=== PATIENT | male | born 1935 | race Caucasian/White ===

== ENCOUNTER 2023-12-21 10:28 | Emergency (ER) | payer OTHER, SELFPAY ==
[2023-12-21 10:32] VITALS: BP 128/67
--- NOTE | 2023-12-21 10:52 | ED.GENMED ---
History of Present Illness
General
Chief Complaint: Throat Problem
Time Seen by Provider: 12/21/23 10:51
Travel History
Have you had any contact with someone who has COVID-19?: No
Do you have any symptoms of coronavirus? Fever > 100 degrees, chills, cough, shortness of breath, sore throat, loss of taste or smell, muscle aches, or headache?: No
History of Present Illness
History of Present Illness:
HPI: The patient presents with bloody sputum ongoing and worsening over the past several weeks. He is known to Dr. Morillo patient called this orthotics assistant who referred him to come here. He is on Xarelto. He reports no shortness of breath.
He has chronic increased phlegm production over the past several decades. He has never smoked.
EXAM:
GENERAL: Well appearing in no distress
HEENT: Moist oral mucosa
CARDIOVASCULAR: No murmurs, normal heart rate, regular rhythm, No chest wall tenderness
PULMONARY: No respiratory distress, breath sounds are clear and equal
ABDOMEN: Soft with no peritoneal signs, no tenderness
NEUROLOGIC: Excellent strength all extremities, no coordination deficits
PSYCHIATRIC: Appropriate mental status, normal insight and judgement
EXTREMITIES: Nontender, no edema, moves all extremities equally
SKIN: No rash, no lesions
TIME OF INITIAL ENCOUNTER: 11 AM
NUMBER AND COMPLEXITY OF PROBLEMS ADDRESSED AT THE ENCOUNTER
� Chronic conditions affecting care: Memory loss, has had brainstem CVA, A-fib on Xarelto, hyperlipidemia, GERD, pancreatic cyst, BPH
� Acute Exacerbation and/or Progression of Chronic Illness: This is an acute problem
� Differential Diagnosis includes: Hemoptysis related to Xarelto use, pneumonia, lung mass
AMOUNT AND/OR COMPLEXITY OF DATA TO BE REVIEWED AND ANALYZED
� I performed an independent evaluation of and my interpretation is:
EKG:
CT:
X-rays: Chest x-ray shows mild cardiomegaly but no other acute abnormality
Laboratory Studies: Hemoglobin level is normal at 15.2, platelet count is normal
Other:
� Review of other/old records: Hemoglobin last April was 16.2
� Clinical information was obtained by an independent historian: I spoke to family member at bedside
� Prescriptions/Medications Considered but not given:
� Further testing considered but not performed:
RISK OF COMPLICATIONS AND/OR MORBIDITY OR MORTALITY OF PATIENT MANAGEMENT
� Social determinants of health affecting care:
� Discussion with other providers:
� Escalation of care including admission/observation vs risk of discharge considered: The patient is well-appearing. He has a orthotics assistant that he can follow-up with. I reassessed patient at 12:30 PM and there has been no
significant change. Imaging and labs unremarkable
Past History
Past History
ED Past Medical History: Arrthythmia (Atrial fibrillation/flutter.), COPD, CVA, GERD, HTN, Hypercholesterolemia and Other (Osteoarthritis: Takes Advil prn.)
ED Past Surgical History: Cardiac (Radiofrequency ablation 2015), Orthopedic and Other (L knee rreplaced 12/29)
Social History
Tobacco: Former smoker
Alcohol: None
Drug: None
Personal:
Living: with family
Employment: Other
Family History
Family History: Other (Noncontributory)
Phy Exam
Physical Exam
Physical Exam:
See HPI
Course
Orders/Labs/Results
Orders:
Orders
12/21/23 11:05
CR Chest - 2 Views Urgent
Comment:
Reason For Exam: hemoptysis never smoked
12/21/23 11:12
Basic Metabolic Panel Urgent
Complete Blood Count/With Diff Urgent
Abnormal Lab Results
12/21/23
11:12
RBC 4.51 L 10^6/uL
(4.70-6.10)
MCV 97.6 H fL
(80.0-94.0)
MCH 33.7 H pg
(27.0-31.0)
MPV 11.6 H fL
(7.4-10.4)
Abs Immat Gran (auto) 0.1 H 10^3/uL
(0-0.05)
Absolute Monos (auto) 0.9 H 10^3/uL
(0.1-0.6)
Immature Gran % 0.8 H %
(0-0.5)
Lymphocytes % 20.4 L %
(20.5-51.1)
Monocytes % 10.7 H %
(1.7-9.3)
Sodium 134 L mmol/L
(135-145)
BUN 21 H mg/dl
(9-20)
Glucose 100 H mg/dl
(70-99)
12/21/23 11:12
12/21/23 11:12
Vital Signs
Initial and Last Documented VS:
Initial Vital Signs
Temp Pulse Resp BP Pulse Ox
98.1 F 55 20 128/67 99
12/21/23 10:32 12/21/23 10:32 12/21/23 10:32 12/21/23 10:32 12/21/23 10:32
Last Documented Vital Signs
Temp Pulse Resp BP Pulse Ox
98.1 F 55 20 128/67 99
12/21/23 10:32 12/21/23 10:32 12/21/23 10:32 12/21/23 10:32 12/21/23 10:32
*Critical Care Note
Total Time (30-74mins, 75-104mins- exclusive of procedures): Not Applicable
ED Attending Note
-
Portions of this chart may have been created with voice recognition software.� Occasional wrong word or��sound alike� substitutions may have occurred due to the inherent limitations of voice recognition software.
Discharge Plan
Departure
Patient Disposition: Home (Routine Discharge)
Date of Disposition: 12/21/23
Time of Disposition: 12:43
Patient with high blood pressure during this ER visit?: Yes
Discharge Problem:
Hemoptysis
Instructions: Coughing up blood
Prescriptions:
No Action
cyanocobalamin (vitamin B-12) 1,000 MCG tablet
3,000 mcg PO DAILY
cholecalciferol (vitamin D3) 2,000 UNITS tablet
5,000 unit PO DAILY
sildenafil [Viagra] 25 MG tablet
100 mg PO . '2 A MONTH' PRN (Reason: prn)
famotidine 20 mg Tablet
20 mg PO HS
amitriptyline 10 mg Tablet
20 mg PO DAILY@1999
albuterol sulfate 90 mcg/actuation Hfa Aerosol Inhaler
2 puff INHALATION Q4HPRN PRN (Reason: SOB)
pregabalin 100 mg Capsule
100 mg PO QPM
fluticasone furoate-vilanterol [Breo Ellipta] 100-25 mcg/dose Blister With Device
1 inh INHALATION DAILY
atorvastatin 40 MG tablet
60 mg PO DAILY
omeprazole 40 mg Capsule,Delayed Release(Dr/Ec)
40 mg PO DAILY
vitamin B complex Capsule
1 cap PO DAILY
Xarelto 20 mg Tablet
20 mg PO QPM
Hold Instructions: Resume on 09/08/22.
lidocaine [Aspercreme (lidocaine)] 4 % Adhesive Patch,Medicated
2 patch topical DAILY Qty: 15 0RF
Rx Instructions:
Over the counter. Remove nightly.
Apply to sides of right knee. DO NOT place over incision.
acetaminophen 325 mg Tablet
650 mg PO Q4HPRN PRN (Reason: mild pain) Qty: 60 0RF
Rx Instructions:
DO NOT exceed >4000 mg daily while on [place].
1 [place] tab = 325 mg of Tylenol.
hydrocodone-acetaminophen 5-325 mg tablet
1 tab PO Q4H PRN (Reason: moderate-severe pain) Qty: 30 0RF
Rx Instructions:
1 tab for moderate pain, 2 if severe.
Dx total joint. Ongoing therapy.
celecoxib 200 mg Capsule
200 mg PO DAILY
Patient Comments:
with food
Referrals:
Onofre Arteaga MD [Family Provider] -
Activity Restrictions/Additional Instructions:
The cause of your symptoms is unclear. The radiologist looked at your chest x-ray and sees no cause for your bleeding. Your white blood cell count and hemoglobin levels are both normal. Other basic labs are normal. Follow-up with your
orthotics assistant. Return here if worse.
Interventions
Interventions:
*Risk Screen - Suicide Last Done: 12/21/23 11:11
*General Assessment Last Done: 12/21/23 11:11
*Neglect/Abuse Screening Last Done: 12/21/23 11:11
ED- Fall Risk Assessment Last Done: 12/21/23 11:20
*ED COVID-19 Vaccine History Last Done: 12/21/23 11:01
ED-EENT Assessment Last Done: 12/21/23 11:21
ED- Pulmonary Assessment Last Done: 12/21/23 11:20
Discharge Date and Time
Print Language: CROATIAN
[2023-12-21 11:11] VITALS: BMI 26.5
[2023-12-21 11:28] LABS: % Basophils 0.8 % (0-2); % Eosinophils 1.5 % (0-6); % Immature Granulocytes 0.8 % (0-0.5); % Lymphocytes 20.4 % (20.5-51.1); % Monocytes 10.7 % (1.7-9.3); % Neutrophils 65.8 % (42.2-75.2); Absolute Basophils 0.1 10^3/uL (0-0.2); Absolute Eosinophils 0.1 10^3/uL (0-0.7); Absolute Immature Granulocytes 0.1 10^3/uL (0-0.05); Absolute Lymphocytes 1.6 10^3/uL (1.2-3.4); Absolute Monocytes 0.9 10^3/uL (0.1-0.6); Absolute Neutrophils 5.3 10^3/uL (1.4-6.5); Hemoglobin 15.2 g/dL (13.0-18.0); Mean Corp Hgb Conc. 34.5 g/dL (33.0-37.0); Mean Corpuscular Hgb 33.7 pg (27.0-31.0); Mean Corpuscular Volume 97.6 fL (80.0-94.0); Mean Platelet Volume 11.6 fL (7.4-10.4); Nucleated Red Blood Cells % 0 % (-); Platelet Count 160 10^3/uL (130-400); Red Blood Cell Count 4.51 10^6/uL (4.70-6.10); Red Cell Dist. Width 13.4 % (11.5-14.5)
[2023-12-21 12:07] LABS: Blood Urea Nitrogen 21 mg/dl (9-20); Calcium 9.2 mg/dl (8.4-10.2); Carbon Dioxide 26 mmol/L (22-30); Chloride 104 mmol/L (98-107); Estimated Creatinine Clearance 62 ml/min; Glucose 100 mg/dl (70-99); Sodium 134 mmol/L (135-145); eGFR > 60.00
== END 2023-12-21 12:52 | disposition home or self-care (01) ==
LOC: EMR 10:28
PROVIDERS: EMERGENCY PHYSICIAN Emergency Medicine; FAMILY PHYSICIAN Internal Medicine Critical Care Medicine
DX: R04.2 Hemoptysis (principal); E78.00 Pure hypercholesterolemia, unspecified; I11.9 Hypertensive heart disease without heart failure; I48.91 Unspecified atrial fibrillation; J44.9 Chronic obstructive pulmonary disease, unspecified; K21.9 Gastro-esophageal reflux disease without esophagitis; Z79.01 Long term (current) use of anticoagulants; Z86.73 Personal history of transient ischemic attack (TIA), and cerebral infarction without residual deficits
CPT/HCPCS: 99283; 71046; 80048; 85025

== ENCOUNTER → 2024-05-01 09:18 | Outpatient (REF) | payer OTHER, SELFPAY | LOC: PAVMRI 09:18 | PROVIDERS: ATTENDING PHYSICIAN Internal Medicine Gastroenterology | DX: K86.2 Cyst of pancreas (principal) | CPT/HCPCS: 74183; A9575 ==

== ENCOUNTER 2024-11-14 16:23 | Emergency (ER) | payer OTHER, SELFPAY ==
[2024-11-14 16:26] VITALS: BP 144/81
[2024-11-14 18:25] LABS: COVID-19 Antigen Positive (Negative)
--- NOTE | 2024-11-14 18:28 | ED.GENMED ---
History of Present Illness
General
Chief Complaint: Fever
Source: patient
Exam Limitations: none
Time Seen by Provider: 11/14/24 17:22
Nursing documentation reviewed up to this point in time: agreed with
History of Present Illness
History of Present Illness:
Patient to ED with complaint of fever since last PM. is on day 6 of COVID. He took a home COVID test which was positive. To ED with requesting to confirm covid and requesting Paxlovid. No difficulty breathing. Fever responding to
tylenol.
Past History
Past History
ED Past Medical History: Arrthythmia (Atrial fibrillation/flutter.), COPD, CVA, GERD, HTN, Hypercholesterolemia and Other (Osteoarthritis: Takes Advil prn.)
ED Past Surgical History: Cardiac (Radiofrequency ablation 2015), Orthopedic and Other (L knee rreplaced 12/29)
Social History
Tobacco: Former smoker
Alcohol: None
Drug: None
Personal:
Living: with family
Employment: Other
Family History
Family History: Other (Noncontributory)
Review of Systems
Review of Systems
Allergies reviewed?: Yes
All Other Systems: ROS reviewed and negative except as documented in HPI and ROS
Constitutional: Reports fever
EENT: Reports no symptoms
Respiratory: Reports no symptoms
Cardiac: Reports no symptoms
ABD/GI: Reports no symptoms
: Reports no symptoms
Musculoskeletal: Reports no symptoms
Skin: Reports no symptoms
Neurological: Reports no symptoms
Psychiatric: Reports no symptoms
Phy Exam
General Physical Exam
General Presentation: well appearing and no apparent distress
General age: appears stated age
General Skin: warm and dry
General Habitus: normal
General Mental: alert
Cardiovascular Exam
Cardiovascular Exam: regular rate/rhythm
Pulmonary Exam
Pulmonary Exam: lungs clear and no respiratory distress
Musculoskeletal Exam
Musculoskeletal Exam: full ROM and neuro vasc intact
Skin Exam
Skin Exam: normal color, warm/dry and no rash
Psychiatric Exam
Psychiatric Exam: normal mood/affect
Course
Orders/Labs/Results
Orders:
Orders
11/14/24 18:03
COVID-19 Antigen Urgent
Source: Nasal Swab
Influenza A+B Rapid Molecular Urgent
SHERLYN Source: Nasal Swab
Specimen Description:
Abnormal Lab Results
11/14/24
18:03
SARS-CoV-2 Antigen Positive A
(Negative)
Vital Signs
Initial and Last Documented VS:
Initial Vital Signs
Temp Pulse Resp BP Pulse Ox
98.8 F 72 20 144/81 96
11/14/24 16:26 11/14/24 16:26 11/14/24 16:26 11/14/24 16:26 11/14/24 16:26
Last Documented Vital Signs
Temp Pulse Resp BP Pulse Ox
98.8 F 72 20 144/81 96
11/14/24 16:26 11/14/24 16:26 11/14/24 16:26 11/14/24 16:26 11/14/24 17:37
*Critical Care Note
Total Time (30-74mins, 75-104mins- exclusive of procedures): Not Applicable
Update Note
Update Note:
Patient remains awake and alert, in no distesss. Afebrile in ED. HR, LCTA, pulse ox 95% RA. COVID confirmed positive. He initially requested Paxlovid however this is contraindicated with xarelto and atorvastatin. THis was explained to patient.
He will be discharged home, continue supportive treatment, close follow up with PCP. Given instructions on s/s to return to ED and he is agreeable to plan.
ED Attending Note
-
Portions of this chart may have been created with voice recognition software.� Occasional wrong word or��sound alike� substitutions may have occurred due to the inherent limitations of voice recognition software.
Discharge Plan
Departure
Patient Disposition: Home (Routine Discharge)
Date of Disposition: 11/14/24
Time of Disposition: 18:28
Patient with high blood pressure during this ER visit?: No
Condition: Good
Covid-19: Not Applicable
Discharge Problem:
COVID-19
Instructions: Fever, Adult (DC), COVID-19 - ED discharge instructions
Prescriptions:
No Action
cyanocobalamin (vitamin B-12) 1,000 MCG tablet
3,000 mcg PO DAILY
cholecalciferol (vitamin D3) 2,000 UNITS tablet
5,000 unit PO DAILY
sildenafil [Viagra] 25 MG tablet
100 mg PO . '2 A MONTH' PRN (Reason: prn)
famotidine 20 mg Tablet
20 mg PO HS
amitriptyline 10 mg Tablet
20 mg PO DAILY@1999
albuterol sulfate 90 mcg/actuation Hfa Aerosol Inhaler
2 puff INHALATION Q4HPRN PRN (Reason: SOB)
pregabalin 100 mg Capsule
100 mg PO QPM
fluticasone furoate-vilanterol [Breo Ellipta] 100-25 mcg/dose Blister With Device
1 inh INHALATION DAILY
atorvastatin 40 MG tablet
60 mg PO DAILY
omeprazole 40 mg Capsule,Delayed Release(Dr/Ec)
40 mg PO DAILY
vitamin B complex Capsule
1 cap PO DAILY
Xarelto 20 mg Tablet
20 mg PO QPM
lidocaine [Aspercreme (lidocaine)] 4 % Adhesive Patch,Medicated
2 patch topical DAILY Qty: 15 0RF
Rx Instructions:
Over the counter. Remove nightly.
Apply to sides of right knee. DO NOT place over incision.
acetaminophen 325 mg Tablet
650 mg PO Q4HPRN PRN (Reason: mild pain) Qty: 60 0RF
Rx Instructions:
DO NOT exceed >4000 mg daily while on [place].
1 [place] tab = 325 mg of Tylenol.
hydrocodone-acetaminophen 5-325 mg tablet
1 tab PO Q4H PRN (Reason: moderate-severe pain) Qty: 30 0RF
Rx Instructions:
1 tab for moderate pain, 2 if severe.
Dx total joint. Ongoing therapy.
celecoxib 200 mg Capsule
200 mg PO DAILY
Patient Comments:
with food
Referrals:
Onofre Arteaga MD [Family Provider] - Next open appointment
Activity Restrictions/Additional Instructions:
Return to the emergency department for any changes in/worsening of your symptoms, especially fever not responding to tylenol, any difficulty breathing, lethargy.
Interventions
Interventions:
*Risk Screen - Suicide Last Done: 11/14/24 16:26
*General Assessment Last Done: 11/14/24 16:26
*Neglect/Abuse Screening Last Done: 11/14/24 17:35
*ED COVID-19 Vaccine History Last Done: 11/14/24 17:35
ED- Neurological Assessment Last Done: 11/14/24 17:35
ED-Skin Assessment Last Done: 11/14/24 17:35
Discharge Date and Time
Print Language: DUTCH
== END 2024-11-14 18:39 | disposition home or self-care (01) ==
LOC: EMR 16:23
PROVIDERS: Nurse Practitioner; EMERGENCY PHYSICIAN Emergency Medicine; FAMILY PHYSICIAN Internal Medicine Critical Care Medicine
DX: U07.1 COVID-19 (principal); I48.91 Unspecified atrial fibrillation; J44.9 Chronic obstructive pulmonary disease, unspecified; K21.9 Gastro-esophageal reflux disease without esophagitis; I10 Essential (primary) hypertension; E78.00 Pure hypercholesterolemia, unspecified; Z86.73 Personal history of transient ischemic attack (TIA), and cerebral infarction without residual deficits; Z87.891 Personal history of nicotine dependence
CPT/HCPCS: 99282; 87502; 87811

== ENCOUNTER → 2024-11-21 09:00 | Outpatient (REF) | payer OTHER, SELFPAY | LOC: RAD 09:00 | PROVIDERS: ATTENDING PHYSICIAN Internal Medicine Critical Care Medicine | DX: R05.3 Chronic cough (principal); U07.1 COVID-19 | CPT/HCPCS: 71046 ==

== ENCOUNTER 2025-02-15 11:10 | Emergency (ER) | payer OTHER, SELFPAY ==
[2025-02-15 11:19] VITALS: BP 131/71
[2025-02-15 12:00] VITALS: BP 137/66
[2025-02-15 12:20] LABS: % Basophils 0.9 % (0-2); % Immature Granulocytes 0.9 % (0-0.5); % Lymphocytes 23.7 % (20.5-51.1); % Monocytes 10.8 % (1.7-9.3); % Neutrophils 61.7 % (42.2-75.2); Absolute Basophils 0.1 10^3/uL (0-0.2); Absolute Eosinophils 0.1 10^3/uL (0-0.7); Absolute Immature Granulocytes 0.1 10^3/uL (0-0.05); Absolute Lymphocytes 1.6 10^3/uL (1.2-3.4); Absolute Monocytes 0.8 10^3/uL (0.1-0.6); Absolute Neutrophils 4.3 10^3/uL (1.4-6.5); Hematocrit 47.2 % (39.0-52.0); Hemoglobin 16.1 g/dL (13.0-18.0); Mean Corp Hgb Conc. 34.1 g/dL (33.0-37.0); Mean Corpuscular Hgb 33.6 pg (27.0-31.0); Mean Corpuscular Volume 98.5 fL (80.0-94.0); Nucleated Red Blood Cells % 0 % (-); Platelet Count 134 10^3/uL (130-400); Red Blood Cell Count 4.79 10^6/uL (4.70-6.10); Red Cell Dist. Width 13.7 % (11.5-14.5); White Blood Cell Count 6.9 10^3/uL (4.8-10.8)
[2025-02-15 12:25] LABS: INR 1.29; PT 16.4 Sec (11.4-14.6)
[2025-02-15 12:26] LABS: APTT 37.3 Sec (23.4-35.0)
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
[2025-02-15 12:44] LABS: Troponin I 0.025 ng/ml
[2025-02-15 12:45] LABS: ALT (SGPT) 33 U/L (0-50); AST (SGOT) 37 U/L (17-59); Albumin 3.7 g/dl (3.5-5.0); Alkaline Phosphatase 45 U/L (38-126); Blood Urea Nitrogen 19 mg/dl (9-20); Calcium 9.5 mg/dl (8.4-10.2); Carbon Dioxide 25 mmol/L (22-30); Chloride 109 mmol/L (98-107); Glucose 107 mg/dl (70-99); Potassium 4.2 mmol/L (3.5-5.1); Sodium 139 mmol/L (135-145); Total Bilirubin 1.4 mg/dl (0.2-1.3); Total Protein 6.1 g/dl (6.3-8.2); eGFR > 60.00
[2025-02-15 13:21] VITALS: BP 127/69
[2025-02-15 14:00] VITALS: BP 125/70
== END 2025-02-15 14:19 | disposition home or self-care (01) ==
LOC: EMR 11:10
PROVIDERS: EMERGENCY PHYSICIAN Student in an Organized Health Care Education/Training Program; FAMILY PHYSICIAN Internal Medicine Critical Care Medicine
DX: R41.0 Disorientation, unspecified (principal); E78.00 Pure hypercholesterolemia, unspecified; I10 Essential (primary) hypertension; I48.91 Unspecified atrial fibrillation; J44.9 Chronic obstructive pulmonary disease, unspecified; Z86.73 Personal history of transient ischemic attack (TIA), and cerebral infarction without residual deficits; Z87.891 Personal history of nicotine dependence
CPT/HCPCS: 99284; 70496; 70498; 80053; 84484; 85025; 85610; 85730; 93005; Q9967

== ENCOUNTER 2025-03-16 08:38 | Emergency (ER) | payer OTHER, SELFPAY ==
[2025-03-16 08:41] VITALS: BP 155/80
--- NOTE | 2025-03-16 09:06 | ED.GENMED ---
History of Present Illness
General
Chief Complaint: Rectal Bleeding
Source: patient
Exam Limitations: none
Time Seen by Provider: 03/16/25 08:43
History of Present Illness
History of Present Illness:
See MDM
Past History
Past History
ED Past Medical History: Arrthythmia (Atrial fibrillation/flutter.), COPD, CVA, GERD, HTN, Hypercholesterolemia and Other (Osteoarthritis: Takes Advil prn.)
ED Past Surgical History: Cardiac (Radiofrequency ablation 2015), Orthopedic and Other (L knee rreplaced 12/29)
Social History
Tobacco: Former smoker
Alcohol: None
Drug: None
Personal:
Living: with family
Employment: Other
Family History
Family History: Other (Noncontributory)
Phy Exam
Physical Exam
Physical Exam:
See MDM
Course
Orders/Labs/Results
Orders:
Orders
03/16/25 09:05
CT Abd/pelvis W Iv Cont Urgent
Comment:
Reason For Exam: intermittent rectal bleeding
03/16/25 09:22
Type+Screen Urgent
Complete Blood Count/With Diff Urgent
Comprehensive Metabolic Panel Urgent
PTT Urgent
Prothrombin Time Urgent
03/16/25 11:03
Cephalexin Monohydrate [Keflex] 500 mg PO NOW STA
Abnormal Lab Results
03/16/25
09:22
MCV 100.0 H fL
(80.0-94.0)
MCH 33.8 H pg
(27.0-31.0)
MPV 12.2 H fL
(7.4-10.4)
Absolute Monos (auto) 0.7 H 10^3/uL
(0.1-0.6)
Immature Gran % 0.6 H %
(0-0.5)
Monocytes % 11.5 H %
(1.7-9.3)
PT 19.2 H Sec
(11.4-14.6)
APTT 41.1 H Sec
(23.4-35.0)
Glucose 104 H mg/dl
(70-99)
03/16/25 09:22
03/16/25 09:22
Vital Signs
Initial and Last Documented VS:
Initial Vital Signs
Temp Pulse Resp BP Pulse Ox
97.7 F 55 16 155/80 98
03/16/25 08:41 03/16/25 08:41 03/16/25 08:41 03/16/25 08:41 03/16/25 08:41
Last Documented Vital Signs
Temp Pulse Resp BP Pulse Ox
97.7 F 55 16 142/80 98
03/16/25 08:41 03/16/25 08:41 03/16/25 08:41 03/16/25 10:40 03/16/25 09:09
MDM/Problems Addressed
Differential Diagnosis Includes:
Note:
CHIEF COMPLAINT(S)
Rectal bleeding.
HISTORY OF PRESENT ILLNESS
The patient is an 89-year-old male who presents with a chief complaint of rectal bleeding. The patient reports noticing the bleeding this morning after a normal bowel movement. The blood was both dark and bright in color and was mixed with stool. He
notes that he did not take his Xaralto (rivaroxaban) dose this morning but took it the previous night. He denies any associated abdominal pain and has a history of occasional minor bleeding with bowel movements in the past. He underwent a
colonoscopy in the past where polyps were found, but he was informed that everything looked satisfactory at that time. There is no recent history of diverticulosis or hemorrhoids reported. On examination, the rectal exam reveals bright red blood
with no obvious external source such as hemorrhoids. The patient also mentions a skin biopsy performed by a hooker operator two weeks ago, which is healing slowly and draining some pus.
PAST SURGICAL HISTORY
Three knee operations, complicated by postoperative bleeding requiring transfusion.
MEDICATIONS
Xarelto (rivaroxaban).
REVIEW OF SYSTEMS
- Gastrointestinal: Reports rectal bleeding with the bowel movement this morning, both dark and bright blood mixed with stool.
- Integumentary: Slow-healing biopsy site with pus drainage.
PHYSICAL EXAM
General: Alert, no acute distress.
Skin: Warm, dry. Evidence of slow-healing biopsy site along left forearm. Mild surrounding erythema noted
Head: Normocephalic, atraumatic.
Neck: Supple, trachea midline.
Eyes, Ears, Nose, Mouth, and Throat: Oral mucosa moist.
Cardiovascular: Normal peripheral perfusion, no edema.
Respiratory: Respirations non-labored.
Gastrointestinal: Abdomen nondistended, tenderness absent on palpation.
Rectal: No hemorrhoids. No stool noted but small amount of bright red blood noted
Musculoskeletal: Normal range of motion, normal strength.
Neurological: Alert and oriented to person, place, time, and situation.
Psychiatric: Cooperative, appropriate mood and affect.
PROBLEM LIST
Acute Problems:
- Rectal bleeding
- Slow-healing skin biopsy site
Chronic Problems:
- History of knee surgeries with postoperative bleeding
PLAN
1. Conduct blood work, including hemoglobin and basic labs, to assess the severity of bleeding and overall health.
2. Perform a CT scan of the abdomen due to the absence of prior imaging records for baseline comparison.
3. If the patient ends up leaving the facility, consider prescribing an antibiotic to address the slow-healing skin biopsy site.
4. Discuss the possibility of admission if the bleeding recurs or worsens, especially considering the patients anticoagulation with rivaroxaban and age-related risk factors.
DIFFERENTIAL DIAGNOSIS
The Differential Diagnosis includes, in no particular order and is not limited to:
1. Diverticular bleeding
2. Colonic polyps
3. Anticoagulant-related bleeding
4. Hemorrhoids
5. Colitis
6. Neoplastic growth in the colon
7. Hematochezia due to colorectal damage
8. Anal fissures
9. Angiodysplasia
10. Vascular malformations in the colon
CARE-UPDATE
03/16/25 - 11:02
Patients hemoglobin is normal, and CT findings are non-specific. Constipation likely causing internal hemorrhoid due to straining; discussed use of laxatives and stool softeners. Patient Ashley prefers going home and feels comfortable with this
decision. Advised on follow-up with GI and return precautions for persistent bleeding or bowel movements with only blood. Reiterated he may experience another bleeding episode if straining continues.
Disposition:
SUMMARY OF ENCOUNTER
An 89-year-old male presented with an episode of rectal bleeding. During his stay in the emergency department, no further episodes were observed. A CT scan indicated constipation but no acute pathology was identified to explain the bleeding. It is
believed to be related to an internal hemorrhoid, possibly due to constipation and straining. The patient was comfortable with discharging home after discussing the options between admission and discharge.
DISPOSITION
Discharge.
ASSESSMENT
The rectal bleeding is likely due to an internal hemorrhoid, possibly aggravated by constipation. Mild erythema was noted at the biopsy site on the left arm.
PLAN
The patient was advised on the use of stool softeners and laxatives to alleviate constipation and minimize straining. Return precautions were provided. Keflex (cephalexin) will be started for the mild erythema at the biopsy site on the left arm.
INDEPENDENT REVIEW OF LABS AND INTERPRETATION OF TESTS
My independent interpretation of the CT scan indicates the presence of constipation without any acute pathology explaining the bleeding. In addition, the CT report was also reviewed.
FOLLOW-UP INSTRUCTIONS
The patient is advised to follow up with gastroenterology.
MEDICATION RECONCILIATION
Prescribed Keflex (cephalexin) for the skin biopsy site.
MEDICAL DECISION MAKING
- Number and Complexity of Problems Addressed: Chronic conditions affecting care include the history of knee surgeries and anticoagulation medication. The Differential Diagnosis includes diverticular bleeding, colonic polyps, anticoagulant-related
bleeding, hemorrhoids, colitis, neoplastic growth in the colon, hematochezia due to colorectal damage, anal fissures, angiodysplasia, and vascular malformations in the colon.
- Data:
Category 1: My independent interpretation of the CT scan showed constipation but no acute pathology explaining the bleeding.
Category 3: Discussion with the patient regarding the management of rectal bleeding and the balance of admission versus discharge. The patient preferred to be discharged.
- Risk: Consideration of Admission/Observation: Escalation of care including admission/observation was considered given the complexity and risk of the patients presenting complaint, exam findings, and/or their underlying comorbidities. However,
ultimately I feel the patient is safe for outpatient management with close follow-up. Reasoning: Work-up is reassuring, does not reveal any acute life/organ-threatening processes, the patients symptoms were well controlled upon reevaluation,
reexamination is reassuring, vitals are stable, patient agreeable with discharge, reliable for follow-up.
DIAGNOSIS
1. Internal hemorrhoid (ICD-10: K64.8)
2. Constipation (ICD-10: K59.00)
3. Mild erythema at biopsy site (ICD-10: L98.9)
*Pulse Oximetry
SaO2: 98
Oxygen Mode of Delivery: Room air
Patient hypoxic: no
*Critical Care Note
Total Time (30-74mins, 75-104mins- exclusive of procedures): Not Applicable
ED Attending Note
-
Portions of this chart may have been created with voice recognition software.� Occasional wrong word or��sound alike� substitutions may have occurred due to the inherent limitations of voice recognition software.
Discharge Plan
Departure
Patient Disposition: Home (Routine Discharge)
Date of Disposition: 03/16/25
Time of Disposition: 11:03
Patient with high blood pressure during this ER visit?: Yes
Discharge Problem:
Rectal bleed, Cellulitis
Instructions: Bloody Stools, Adult (DC), BLOOD PRESSURE
Prescriptions:
New
cephalexin 500 mg capsule
500 mg PO BID 7 Days Qty: 14 0RF
No Action
cyanocobalamin (vitamin B-12) 1,000 MCG tablet
3,000 mcg PO DAILY
famotidine 20 mg Tablet
20 mg PO HS
amitriptyline 10 mg Tablet
10 mg PO HS
albuterol sulfate 90 mcg/actuation Hfa Aerosol Inhaler
2 puff INHALATION R Q4HPRN PRN (Reason: SOB)
fluticasone furoate-vilanterol [Breo Ellipta] 100-25 mcg/dose Blister With Device
1 inh INHALATION R DAILY
vitamin B complex Capsule
1 cap PO DAILY
Xarelto 20 mg Tablet
20 mg PO QPM
atorvastatin [Lipitor] 20 mg Tablet
60 mg PO QPM
cholecalciferol (vitamin D3) [Vitamin D3] 125 mcg (5,000 unit) Tablet
125 mcg PO DAILY
Metamucil Packet
1 packet PO DAILY
finasteride 5 mg Tablet
5 mg PO HS
pregabalin [Lyrica] 100 mg Capsule
100 mg PO HS
magnesium oxide 400 mg magnesium Tablet
400 mg PO DAILY
Referrals:
Anuj Majano MD [Active, Gastroenterology]
Onofre Arteaga MD [Family Provider, Pulmonary Medicine]
Activity Restrictions/Additional Instructions:
Please return for any worsening symptoms.
You may return at any time if you have further concerns.
Please follow up with your doctor at the first available appointment, preferably this week.
You would benefit from a stool softener and laxative.
Please follow-up with a medical reception.
Thank you for choosing [facility].
Interventions
Interventions:
*Risk Screen - Suicide Last Done: 03/16/25 08:41
*Neglect/Abuse Screening Last Done: 03/16/25 08:41
Discharge Date and Time
Print Language: TAMAZIGHT
[2025-03-16 09:09] VITALS: BMI 30.5
[2025-03-16 09:39] LABS: Hematocrit 47.1 % (39.0-52.0); Hemoglobin 15.9 g/dL (13.0-18.0); Mean Corp Hgb Conc. 33.8 g/dL (33.0-37.0); Mean Corpuscular Volume 100.0 fL (80.0-94.0); Nucleated Red Blood Cells % 0 % (-); Platelet Count 133 10^3/uL (130-400); Red Cell Dist. Width 13.1 % (11.5-14.5)
[2025-03-16 09:57] LABS: INR 1.59; PT 19.2 Sec (11.4-14.6)
[2025-03-16 09:58] LABS: ALT (SGPT) 40 U/L (0-50); APTT 41.1 Sec (23.4-35.0); AST (SGOT) 32 U/L (17-59); Albumin 4.0 g/dl (3.5-5.0); Alkaline Phosphatase 62 U/L (38-126); Blood Urea Nitrogen 16 mg/dl (9-20); Calcium 9.0 mg/dl (8.4-10.2); Carbon Dioxide 27 mmol/L (22-30); Chloride 107 mmol/L (98-107); Estimated Creatinine Clearance 54 ml/min; Glucose 104 mg/dl (70-99); Potassium 4.4 mmol/L (3.5-5.1); Sodium 138 mmol/L (135-145); Total Protein 6.3 g/dl (6.3-8.2); eGFR > 60.00
[2025-03-16 10:40] VITALS: BP 142/80
[2025-03-16] MEDS: KEFLEX 500 MG PO (11:11)
== END 2025-03-16 11:10 | disposition home or self-care (01) ==
LOC: EMR 08:38
PROVIDERS: EMERGENCY PHYSICIAN Student in an Organized Health Care Education/Training Program; FAMILY PHYSICIAN Internal Medicine Critical Care Medicine
DX: K62.5 Hemorrhage of anus and rectum (principal); L03.114 Cellulitis of left upper limb; I10 Essential (primary) hypertension; K64.8 Other hemorrhoids; K59.00 Constipation, unspecified; Z87.891 Personal history of nicotine dependence
CPT/HCPCS: 99285; 74177; 80053; 85025; 85610; 85730; 86850; 86900; 86901; Q9967

== ENCOUNTER 2025-04-10 09:20 | Emergency (ER) | payer OTHER, SELFPAY ==
[2025-04-10] VITALS (7 sets, daily range): BP systolic 131–152; BP diastolic 68–88; BMI 27.5
[2025-04-10 09:43] LABS: Glucose - Point of Care 117 mg/dl (70-99)
--- NOTE | 2025-04-10 09:46 | ED.CVA ---
History of Present Illness
General
Chief Complaint: CVA/TIA Symptoms
Source: patient and spouse
Time Seen by Provider: 04/10/25 09:34
Onset of Stroke Symptoms
Onset of symptoms known: No
Time pt last seen normal is known: Yes
Date last time pt seen normal: 04/09/25
History of Present Illness
History of Present Illness:
See MDM
Past History
Past History
ED Past Medical History: Arrthythmia (Atrial fibrillation/flutter.), COPD, CVA, GERD, HTN, Hypercholesterolemia and Other (Osteoarthritis: Takes Advil prn.)
ED Past Surgical History: Cardiac (Radiofrequency ablation 2015), Orthopedic and Other (L knee rreplaced 12/29)
Social History
Tobacco: Former smoker
Alcohol: None
Drug: None
Personal:
Living: with family
Employment: Other
Family History
Family History: Other (Noncontributory)
Phy Exam
Physical Exam
Physical Exam:
See MDM
NIH Stroke Score
Level of Consciousness: 0 - Alert
LOC questions: 0-Answers both correctly
LOC Commands: 0-Performs both correctly
Best Gaze: 0-Normal
Visual Wiseman: 0=Normal, no visual loss
Facial palsy: 0=Normal, symmetrical
Motor - Right Arm: 0=No drift 10 seconds
Motor - Left Arm: 0=No drift 10 seconds
Motor - Right Le-No drift 5 seconds
Motor - Left Le-No drift 5 seconds
Limb Ataxia: 0-Absent
Sensation: 0-Normal
Best Language: 1-Mild aphasia
Dysarthria: 0-Normal
Extinction and Inattention: 0-No abnormality
Total Score:: 1
Course
Orders/Labs/Results
Orders:
Orders
04/10/25 09:42
Electrocardiogram (*1) Urgent
Reason for Study: TIA/Stroke
CT Head W/o Iv Contrast Urgent
Comment:
Reason For Exam: expressive aphasia
EKG- Treatment ONCE
04/10/25 09:47
Complete Blood Count/With Diff Urgent
Comprehensive Metabolic Panel Urgent
PTT Urgent
Prothrombin Time Urgent
Abnormal Lab Results
04/10/25 04/10/25
09:37 09:47
MCV 99.2 H fL
(80.0-94.0)
MCH 33.3 H pg
(27.0-31.0)
MPV 11.9 H fL
(7.4-10.4)
Absolute Monos (auto) 0.7 H 10^3/uL
(0.1-0.6)
Monocytes % 10.7 H %
(1.7-9.3)
PT 18.7 H Sec
(11.4-14.6)
APTT 36.9 H Sec
(23.4-35.0)
Glucose 125 H mg/dl
(70-99)
Total Bilirubin 1.6 H mg/dl
(0.2-1.3)
POC Glucose 117 H mg/dl
(70-99)
04/10/25 09:47
04/10/25 09:47
Vital Signs
Initial and Last Documented VS:
Initial Vital Signs
Pulse Resp BP Pulse Ox
58 18 152/88 98
04/10/25 09:23 04/10/25 09:23 04/10/25 09:23 04/10/25 09:23
Last Documented Vital Signs
Pulse Resp BP Pulse Ox
48 16 142/71 98
04/10/25 12:15 04/10/25 12:15 04/10/25 11:00 04/10/25 12:15
MDM/Problems Addressed
Differential Diagnosis Includes:
Note:
CHIEF COMPLAINT(S)
Difficulty speaking and possible transient ischemic attack (TIA).
HISTORY OF PRESENT ILLNESS
The patient is an 89-year-old male with a history of prior strokes who presented with difficulty speaking upon waking. At approximately 7:00 AM, the patient awoke and initially did not exhibit any noticeable symptoms. However, by around 8:00 AM,
after becoming dressed and attempting to order items online, it became apparent that he was unable to recall certain things and had difficulty articulating words. This speech difficulty did not resolve, prompting concern about a possible stroke or
TIA. The patients speech had been normal the night before at 10:00 PM. He reported temporary visual disturbances described as blurry vision with no complete vision blackouts. He denied significant headaches but noted a transient sensation that
resembled a headache. This has since resolved. Intermittent mild difficulty with speech is ongoing. The patient also reported a temporary issue with sound perception in his left ear, which was very loud the previous day.
PAST MEDICAL AND SURGICAL HISTORY
The patient has a history of strokes.
REVIEW OF SYSTEMS
- Neurological: Difficulty speaking, characterized by inability to form words and recall certain items.
- Ophthalmologic: Blurry vision, no vision blackout.
- Auditory: Temporary increased loudness in the left ear.
PHYSICAL EXAM
General: Alert, no acute distress.
Skin: Warm, dry.
Head: Normocephalic, atraumatic
Neck: Appears supple, trachea midline.
Eyes, Ears, Nose, Mouth, and Throat: Oral mucosa moist. Pupils equal reactive. EOMI
Cardiovascular: No signs of cyanosis. Regular rate and rhythm
Respiratory: Respirations are non-labored.
Abdomen: Non-distended
Musculoskeletal: No deformities
Neurological: No focal neurological deficit observed.. Normal finger-nose bilaterally
Psychiatric: Cooperative, appropriate mood and affect.
PLAN
A computed tomography (CT) scan will be conducted to rule out intracranial hemorrhage given the patients use of anticoagulation (rivaroxaban - Xarelto). Discussion with the neurology team will follow regarding the management plan. Review of prior
medical records to ensure completeness of previous work-ups and optimization of current medical therapy. Consideration for possible discharge if findings are consistent with a TIA and the patient is on optimal medical management.
DIFFERENTIAL DIAGNOSIS
The Differential Diagnosis includes, in no particular order and is not limited to:
1. Transient ischemic attack (TIA)
2. Cerebrovascular accident (CVA)
3. Migraine with aura
4. Seizure activity with postictal state
5. Hypoglycemia
6. Central nervous system infection
7. Medication side effect
8. Brain neoplasm
9. Hypertensive encephalopathy
10. Vestibular dysfunction
04/10/25 - 12:29
Symptoms resolving with no acute pathology on CT. Neurologist confirmed no admission necessary. Patient on optimal medical management including cholesterol, blood pressure meds, and Zarelto. Agreed with patient and . Discussed and recommended
rectal steroid, stool softener, and increased hydration for external hemorrhoids prior to discharge.
SUMMARY OF ENCOUNTER
The patient, an 89-year-old male with a history of prior strokes, presented with difficulty speaking and potential transient ischemic attack (TIA). Symptoms included difficulty in articulating words and temporary visual disturbances. The patients
speech was normal the night before. There was concern for TIA due to symptom resolution and ongoing mild aphasia. A CT scan was planned to rule out intracranial hemorrhage given the use of anticoagulation (rivaroxaban). The patient was comfortable
and agreed with the outlined management plan.
MANAGEMENT OF THE PATIENTS CARE WAS DISCUSSED WITH
Neurologist consulted to confirm no admission was necessary.
PLAN
Conduct a CT scan to rule out intracranial hemorrhage. Discuss management plans with the neurology team. Ensure the patient continues with optimal medical therapy. Consider discharge if findings align with a TIA diagnosis and current therapeutic
regimen is effective.
PATIENT EDUCATION AND COUNSELING
Discussed with the patient the importance of continuing current medications. Provided guidance on managing external hemorrhoids with rectal steroids and stool softeners. Reinforced the importance of medication adherence and outlined steps for
increased hydration.
FOLLOW-UP INSTRUCTIONS
Ensure follow-up with primary care for continued management of existing conditions.
MEDICAL DECISION MAKING
-Complexity of Data Reviewed: Chronic conditions affecting care include history of strokes. Differential diagnosis includes transient ischemic attack (TIA), cerebrovascular accident (CVA), migraine with aura, seizure activity with postictal state,
hypoglycemia, central nervous system infection, medication side effect, brain neoplasm, hypertensive encephalopathy, vestibular dysfunction.
-Data:
Category 1: Reviewed patients outpatient pharmacy records. Discussed management needs given prior imaging results showing no surgical requirements.
Category 2: My independent interpretation of prior CT angiogram of the neck revealed no clinically relevant stenoses requiring surgical intervention.
-Risk: Escalation of care including admission/observations was considered given the complexity of the patients presenting complaint, yet ultimately, outpatient management was deemed safe. The workup reassured no acute life-threatening processes;
symptoms were well-controlled upon reevaluation; the patient was agreeable to discharge and reliable for follow-up.
DIAGNOSIS
Transient Ischemic Attack (TIA) - ICD-10-CM G45.9.
*Pulse Oximetry
SaO2: 98
Oxygen Mode of Delivery: Room air
Patient hypoxic: no
*Critical Care Note
Total Time (30-74mins, 75-104mins- exclusive of procedures): Not Applicable
ED Attending Note
-
Portions of this chart may have been created with voice recognition software.� Occasional wrong word or��sound alike� substitutions may have occurred due to the inherent limitations of voice recognition software.
Discharge Plan
Departure
Patient Disposition: Home (Routine Discharge)
Date of Disposition: 04/10/25
Time of Disposition: 12:33
Patient with high blood pressure during this ER visit?: Yes
Discharge Problem:
Brain TIA
Instructions: Transient Ischemic Attack (DC), BLOOD PRESSURE
Prescriptions:
New
pramoxine [Proctofoam] 1 % foam
1 applic [place] BID Qty: 15 0RF
No Action
cyanocobalamin (vitamin B-12) 1,000 MCG tablet
1,000 mcg PO DAILY
famotidine 20 mg Tablet
20 mg PO HS
amitriptyline 10 mg Tablet
10 mg PO HS
fluticasone furoate-vilanterol [Breo Ellipta] 100-25 mcg/dose Blister With Device
1 inh INHALATION R DAILY
vitamin B complex Capsule
1 cap PO DAILY
rivaroxaban [Xarelto] 20 mg Tablet
20 mg PO QPM
atorvastatin [Lipitor] 20 mg Tablet
60 mg PO DAILY
Metamucil Packet
1 packet PO DAILY
finasteride 5 mg Tablet
5 mg PO HS
pregabalin [Lyrica] 100 mg Capsule
100 mg PO HS
magnesium oxide 250 mg magnesium Tablet
250 mg PO HS
cholecalciferol (vitamin D3) [Vitamin D3] 25 mcg (1,000 unit) Tablet
25 mcg PO DAILY
Referrals:
Onofre Arteaga MD [Family Provider, Pulmonary Medicine]
Activity Restrictions/Additional Instructions:
Please return for any worsening symptoms.
You may return at any time if you have further concerns.
Please follow up with your doctor at the first available appointment, preferably this week.
Please continue to take your medications as prescribed.
Thank you for choosing [facility].
Interventions
Interventions:
*Risk Screen - Suicide Last Done: 04/10/25 09:23
*General Assessment Last Done: 04/10/25 09:23
*ED- Fall Risk Assessment Last Done: 04/10/25 09:31
*ED COVID-19 Vaccine History Last Done: 04/10/25 09:31
ED- Pulmonary Assessment Last Done: 04/10/25 09:31
ED- Neurological Assessment Last Done: 04/10/25 09:31
ED- Cardiac Assessment Last Done: 04/10/25 09:31
Discharge Date and Time
Print Language: LIBYAN
[2025-04-10 09:58] LABS: Hematocrit 49.4 % (39.0-52.0); Hemoglobin 16.6 g/dL (13.0-18.0); Mean Corp Hgb Conc. 33.6 g/dL (33.0-37.0); Mean Corpuscular Volume 99.2 fL (80.0-94.0); Nucleated Red Blood Cells % 0 % (-); Platelet Count 150 10^3/uL (130-400); Red Cell Dist. Width 13.1 % (11.5-14.5)
[2025-04-10 10:11] LABS: INR 1.53; PT 18.7 Sec (11.4-14.6)
[2025-04-10 10:12] LABS: APTT 36.9 Sec (23.4-35.0)
[2025-04-10 10:21] LABS: ALT (SGPT) 46 U/L (0-50); AST (SGOT) 39 U/L (17-59); Albumin 4.2 g/dl (3.5-5.0); Alkaline Phosphatase 67 U/L (38-126); Blood Urea Nitrogen 17 mg/dl (9-20); Calcium 9.3 mg/dl (8.4-10.2); Carbon Dioxide 24 mmol/L (22-30); Chloride 106 mmol/L (98-107); Estimated Creatinine Clearance 53 ml/min; Glucose 125 mg/dl (70-99); Potassium 4.4 mmol/L (3.5-5.1); Sodium 137 mmol/L (135-145); Total Protein 6.6 g/dl (6.3-8.2); eGFR > 60.00
--- NOTE | 2025-04-10 13:11 | EDRN ---
Reviewed discharge instructions with patient. Verbalized understanding. Ambulated with steady gait to the lobby.
== END 2025-04-10 13:10 | disposition home or self-care (01) ==
LOC: EMR 09:20
PROVIDERS: EMERGENCY PHYSICIAN Student in an Organized Health Care Education/Training Program; FAMILY PHYSICIAN Internal Medicine Critical Care Medicine
DX: G45.9 Transient cerebral ischemic attack, unspecified (principal); I48.91 Unspecified atrial fibrillation; I10 Essential (primary) hypertension; E78.00 Pure hypercholesterolemia, unspecified; J44.9 Chronic obstructive pulmonary disease, unspecified; K21.9 Gastro-esophageal reflux disease without esophagitis; M19.90 Unspecified osteoarthritis, unspecified site; K64.4 Residual hemorrhoidal skin tags; Z79.01 Long term (current) use of anticoagulants; Z86.73 Personal history of transient ischemic attack (TIA), and cerebral infarction without residual deficits; Z87.891 Personal history of nicotine dependence; Z96.652 Presence of left artificial knee joint
CPT/HCPCS: 99284; 70450; 80053; 82962; 85025; 85610; 85730; 93005